=== PATIENT | male | born 1985 ===

== ENCOUNTER 2019-03-03 12:37 | Outpatient (CLI) | payer OTHER ==
[~2019-03-03 12:37] MED LIST: CARAFATE SU1 G/10 ML PO; LEVSIN/SL0.125 MG SL; PEPCID40 MG PO; ZANTAC150 MG PO; ZOFRAN4 MG PO
== END 2019-03-03 14:54 | disposition home or self-care (01) ==
LOC: RAD 12:37
DX: M25.561 Pain in right knee (principal)

== ENCOUNTER 2019-03-07 09:34 | Outpatient (CLI) | payer OTHER | END 2019-03-07 10:26 | disposition home or self-care (01) | LOC: MRI 09:34 | DX: S83.281A Other tear of lateral meniscus, current injury, right knee, initial encounter (principal) | CPT/HCPCS: 73721 ==

== ENCOUNTER → 2019-03-14 | Outpatient (CLI) | payer OTHER | END | disposition home or self-care (01) | LOC: RAD 11:26 | DX: S83.241A Other tear of medial meniscus, current injury, right knee, initial encounter (principal) ==

== ENCOUNTER 2019-03-15 08:14 | Outpatient (CLI) | payer OTHER | END 2019-03-15 15:00 | disposition home or self-care (01) | LOC: LAB 08:14 | DX: S83.241A Other tear of medial meniscus, current injury, right knee, initial encounter (principal) ==